=== PATIENT | male | born 1965 | race Caucasian/White ===

== ENCOUNTER 2020-07-02 16:15 | Observation (INO) | payer MEDICARE, OTHER ==
[~2020-07-02] VITALS: Ht 182.9 cm; Wt 74.8 kg
[~2020-07-02 16:15] MED LIST: LEVAQUIN500 MG PO; NORCO 5-325 TA1 EACH PO; PROTONIX 40 MG40 M1 PO; ZANTAC150 MG PO
[2020-07-02 17:11] LABS: HEMOGLOBIN 14.7 gm/dl (14.0-17.5); RED BLOOD COUNT 3.97 M/UL (4.20-5.50); WHITE BLOOD COUNT 9.4 K/UL (4.5-11.0)
[2020-07-02 17:36] LABS: BUN/CREATININE RATIO 7 (0-10)
[2020-07-03] MEDS ORDERED: LISINOPRIL10 MG PO (00:50)
[2020-07-03 03:27] LABS: HEMOGLOBIN 12.8 gm/dl (14.0-17.5); WHITE BLOOD COUNT 8.2 K/UL (4.5-11.0)
[2020-07-03 03:41] LABS: RED BLOOD COUNT 3.55 M/UL (4.20-5.50)
[2020-07-03 03:49] LABS: BUN/CREATININE RATIO 9 (0-10)
[2020-07-04 05:59] LABS: HEMOGLOBIN 12.8 gm/dl (14.0-17.5); RED BLOOD COUNT 3.53 M/UL (4.20-5.50)
[2020-07-04 06:00] LABS: WHITE BLOOD COUNT 6.1 K/UL (4.5-11.0)
[2020-07-04 06:32] LABS: BUN/CREATININE RATIO 15 (0-10)
[2020-07-04] MEDS ORDERED: AUGMENTIN 875-1 EACH PO (09:53)
== END 2020-07-04 10:45 | disposition home or self-care (01) ==
LOC: ER1 16:15 → CDU 22:21 → M/S 22:21
PROVIDERS: Internal Medicine Infectious Disease; Physician Assistant; ADMIT Family Medicine
DX: L03.114 Cellulitis of left upper limb (principal); L03.113 Cellulitis of right upper limb; E87.6 Hypokalemia; E83.42 Hypomagnesemia; E87.2 Acidosis; I10 Essential (primary) hypertension; K21.9 Gastro-esophageal reflux disease without esophagitis; F17.210 Nicotine dependence, cigarettes, uncomplicated; R74.01 Elevation of levels of liver transaminase levels; Z20.822 Contact with and (suspected) exposure to COVID-19; Z79.899 Other long term (current) drug therapy; W55.03XA Scratched by cat, initial encounter
CPT/HCPCS: 36415; 73130; 80053; 83605; 83735; 84100; 85025; 85027; 85652; 86140; 87040; 96365; 96375; 96376; 99284; G0378; J0295; J0456; J1885; J2270; J2405; J7030; U0002

== ENCOUNTER 2020-08-09 15:14 | Emergency (ER) | payer MEDICARE ==
[~2020-08-09 15:14] MED LIST changes: +AUGMENTIN 875-1 EACH PO; +LISINOPRIL10 MG PO
[2020-08-09 16:03] LABS: HEMOGLOBIN 14.2 gm/dl (14.0-17.5); RED BLOOD COUNT 3.84 M/UL (4.20-5.50); WHITE BLOOD COUNT 8.9 K/UL (4.5-11.0)
[2020-08-09 16:27] LABS: BUN/CREATININE RATIO 8 (0-10)
[2020-08-09] MEDS ORDERED: PREDNISONE20 MG PO (17:57)
[2020-08-09] MEDS ORDERED: BACTROBAN OINT22 GM EXT (17:57)
== END 2020-08-09 18:05 | disposition home or self-care (01) ==
LOC: ER1 15:14
PROVIDERS: Family Medicine
DX: L03.115 Cellulitis of right lower limb (principal); L03.116 Cellulitis of left lower limb; I10 Essential (primary) hypertension
CPT/HCPCS: 80053; 85025; 85610; 85652; 85730; 86140; 99283

== ENCOUNTER 2020-12-19 21:49 | Inpatient (IN) | payer MEDICARE ==
[~2020-12-19] VITALS: Ht 182.9 cm; Wt 69.5 kg
[~2020-12-19 21:49] MED LIST changes: +ASPIRIN EC81 MG PO; +BACTROBAN OINT22 GM EXT; +PREDNISONE20 MG PO; +VITAMIN D325 MCG PO
[2020-12-19 22:23] LABS: HEMOGLOBIN 15.5 gm/dl (14.0-17.5); RED BLOOD COUNT 4.19 M/UL (4.20-5.50); WHITE BLOOD COUNT 11.5 K/UL (4.5-11.0)
[2020-12-19 23:12] LABS: BUN/CREATININE RATIO 6 (0-10)
[2020-12-20 03:00] LABS: HEMOGLOBIN 14.7 gm/dl (14.0-17.5); RED BLOOD COUNT 3.99 M/UL (4.20-5.50); WHITE BLOOD COUNT 10.7 K/UL (4.5-11.0)
[2020-12-21 05:40] LABS: HEMOGLOBIN 12.8 gm/dl (14.0-17.5); RED BLOOD COUNT 3.52 M/UL (4.20-5.50); WHITE BLOOD COUNT 8.7 K/UL (4.5-11.0)
[2020-12-21 06:07] LABS: BUN/CREATININE RATIO 14 (0-10)
--- NOTE | 2020-12-21 08:57 | NUR ---
PATIENT HAVING HEART CATH DONE TODAY, CALLED [facility] INSPECTOR NOT FAMILIAR WITH THE PATIENT NO ORDERS AT THIS TIME. MEDICATIONS ON HOLD AND TO BE ADMINISTERED POST PROCEDURE.
[2020-12-21] MEDS ORDERED: VITAMIN B-1100 M1 PO (12:06)
[2020-12-21] MEDS ORDERED: FOLIC ACID 1 MG1 MG PO (12:06)
--- NOTE | 2020-12-21 15:40 | NUR ---
RN REMOVED TR BAND AFTER ALL AIR WAS EXTRACTED. NO S/SX OF BLEEDING OR HEMATOMA. PULSES PRESENT. DENIES PAIN. WIGGLES FINGERS. INSTRUCTED TO LIMIT MOVEMENT OF RIGHT WRIST TO PREVENT COMPLICATIONS. REFUSES WRIST BOARD. PATIENT STATED THEY WOULD APPLY EVENT MONITOR ONCE DISCHARGED. MD AWARE.
== END 2020-12-21 16:53 | disposition home or self-care (01) | DRG 287 ==
LOC: ER1 21:49 → CDU 12-20 01:13 → MED SURG 4 12-20 01:13
PROVIDERS: Physician Assistant; ADMIT Internal Medicine
PROC: B24BZZZ Ultrasonography of Heart with Aorta (ICD-10-PCS; principal; 2020-12-20)
PROC: 4A023N7 Measurement of Cardiac Sampling and Pressure, Left Heart, Percutaneous Approach (ICD-10-PCS; 2020-12-21)
PROC: B2111ZZ Fluoroscopy of Multiple Coronary Arteries using Low Osmolar Contrast (ICD-10-PCS; 2020-12-21)
DX: I25.110 Atherosclerotic heart disease of native coronary artery with unstable angina pectoris (principal); E87.1 Hypo-osmolality and hyponatremia; E07.89 Other specified disorders of thyroid; Z20.822 Contact with and (suspected) exposure to COVID-19; I10 Essential (primary) hypertension; I08.1 Rheumatic disorders of both mitral and tricuspid valves; R79.89 Other specified abnormal findings of blood chemistry; R55 Syncope and collapse; K21.9 Gastro-esophageal reflux disease without esophagitis; F10.10 Alcohol abuse, uncomplicated; F17.210 Nicotine dependence, cigarettes, uncomplicated; Z79.01 Long term (current) use of anticoagulants; Z79.82 Long term (current) use of aspirin; Z85.038 Personal history of other malignant neoplasm of large intestine; Z90.49 Acquired absence of other specified parts of digestive tract; Z82.49 Family history of ischemic heart disease and other diseases of the circulatory system; Z83.3 Family history of diabetes mellitus
CPT/HCPCS: 36415; 71045; 80048; 80053; 82550; 82553; 83874; 83880; 84484; 85025; 85379; 85610; 85730; 93005; 93308; 96374; 96375; 99152; 99285; C1769; C1887; C1894; J1644; J2250; J2270; J2405; J3010; J7030; Q9967; U0002

== ENCOUNTER → 2021-03-24 | Day surgery (SDC) | payer MEDICARE ==
[~2021-03-24] MED LIST changes: +FOLIC ACID 1 MG1 MG PO; +METOPROLOL TART25 MG PO; +VITAMIN B-1100 M1 PO
== END | disposition home or self-care (01) ==
LOC: OR 06:03
DX: Z12.11 Encounter for screening for malignant neoplasm of colon (principal); K22.70 Barrett's esophagus without dysplasia; K62.1 Rectal polyp; K76.6 Portal hypertension; K31.89 Other diseases of stomach and duodenum; K21.9 Gastro-esophageal reflux disease without esophagitis; K64.0 First degree hemorrhoids; K64.4 Residual hemorrhoidal skin tags; F10.10 Alcohol abuse, uncomplicated; I10 Essential (primary) hypertension; Z86.010 Personal history of colon polyps; Z80.0 Family history of malignant neoplasm of digestive organs; F17.210 Nicotine dependence, cigarettes, uncomplicated; Z79.899 Other long term (current) drug therapy; Z20.822 Contact with and (suspected) exposure to COVID-19
CPT/HCPCS: J2704; J3010; J7040

== ENCOUNTER → 2021-03-30 | Outpatient (CLI) | payer MEDICARE | LOC: US 03-11 09:30 | DX: R11.10 Vomiting, unspecified (principal); K80.20 Calculus of gallbladder without cholecystitis without obstruction; K76.0 Fatty (change of) liver, not elsewhere classified | CPT/HCPCS: 36415; 76705; 80076; 82150; 83690 ==

== ENCOUNTER → 2021-04-08 | Outpatient (CLI) | payer MEDICARE | LOC: MRI 08:14 | DX: K83.8 Other specified diseases of biliary tract (principal); K76.0 Fatty (change of) liver, not elsewhere classified | CPT/HCPCS: 74181 ==

== ENCOUNTER 2021-10-12 10:24 | Emergency (ER) | payer MEDICARE ==
[2021-10-12] MEDS ORDERED: ONDANSETRON ODT4 MG SL ×2 (16:37→16:45)
[2021-10-12] MEDS ORDERED: MECLIZINE HCL25 MG PO ×2 (16:37→16:45)
[2021-10-12] MEDS ORDERED: AMOX TR-K CLV1 EAC4 PO ×2 (16:37→16:45)
== END 2021-10-12 17:00 | disposition home or self-care (01) ==
LOC: ER1 10:24
DX: S93.401A Sprain of unspecified ligament of right ankle, initial encounter (principal); H66.91 Otitis media, unspecified, right ear; H72.91 Unspecified perforation of tympanic membrane, right ear; K21.9 Gastro-esophageal reflux disease without esophagitis; I10 Essential (primary) hypertension; I48.91 Unspecified atrial fibrillation; F17.200 Nicotine dependence, unspecified, uncomplicated; X50.9XXA Other and unspecified overexertion or strenuous movements or postures, initial encounter
CPT/HCPCS: 73610; 99283

== ENCOUNTER 2021-10-19 19:31 | Inpatient (IN) | payer MEDICARE ==
[~2021-10-19] VITALS: Ht 182.9 cm; Wt 74.8 kg
[~2021-10-19 19:31] MED LIST changes: +AMOX TR-K CLV1 EAC4 PO; +CIPRODEX OTIC7.5 ML EARRT; +MECLIZINE HCL25 MG PO; +ONDANSETRON ODT4 MG SL
[2021-10-19 20:39] LABS: HEMOGLOBIN 14.4 gm/dl (14.0-17.5); RED BLOOD COUNT 4.21 M/UL (4.20-5.50); WHITE BLOOD COUNT 6.6 K/UL (4.5-11.0)
[2021-10-19 21:09] LABS: BUN/CREATININE RATIO 9 (0-10)
[2021-10-20] MEDS ORDERED: TRAZODONE HCL50 MG PO (13:16)
[2021-10-20] MEDS ORDERED: MECLIZINE HCL25 MG PO (13:17)
[2021-10-20] MEDS ORDERED: VIAGRA25 MG PO (13:24)
[2021-10-21 02:53] LABS: WHITE BLOOD COUNT 5.7 K/UL (4.5-11.0)
[2021-10-21 02:56] LABS: HEMOGLOBIN 11.9 gm/dl (14.0-17.5); RED BLOOD COUNT 3.58 M/UL (4.20-5.50)
[2021-10-21 03:16] LABS: BUN/CREATININE RATIO 15 (0-10)
[2021-10-21 10:51] LABS: BUN/CREATININE RATIO 12 (0-10)
[2021-10-21] MEDS ORDERED: ASPIRIN EC81 MG PO (16:31)
[2021-10-21] MEDS ORDERED: KEPPRA 500 MG500 MG PO (16:31)
[2021-10-21] MEDS ORDERED: ATORVASTATIN CA20 MG PO (16:31)
[2021-10-21] MEDS ORDERED: LOPRESSOR 25 MG25 MG PO (16:31)
[2021-10-21] MEDS ORDERED: LIBRIUM CAP 2525 MG PO (17:48)
[2021-10-21] MEDS ORDERED: ONDANSETRON HCL4 MG PO (17:56)
[2021-10-21] MEDS ORDERED: MAG-OX 400 TAB400 MG PO (17:56)
== END 2021-10-21 19:28 | disposition home or self-care (01) | DRG 897 ==
LOC: ER1 19:31 → M/S 10-20 04:25 → CDU 10-20 04:25 → M/S 10-20 05:01
PROVIDERS: Family Medicine; Internal Medicine; ADMIT Family Medicine
PROC: B24BZZZ Ultrasonography of Heart with Aorta (ICD-10-PCS; 2021-10-20)
PROC: 4A10X4Z Monitoring of Central Nervous Electrical Activity, External Approach (ICD-10-PCS; principal; 2021-10-21)
DX: F10.231 Alcohol dependence with withdrawal delirium (principal); E87.1 Hypo-osmolality and hyponatremia; E87.2 Acidosis; I47.1 Supraventricular tachycardia; R56.9 Unspecified convulsions; I10 Essential (primary) hypertension; M54.50 Low back pain, unspecified; E55.9 Vitamin D deficiency, unspecified; G89.29 Other chronic pain; E83.42 Hypomagnesemia; K21.9 Gastro-esophageal reflux disease without esophagitis; F17.200 Nicotine dependence, unspecified, uncomplicated; K76.0 Fatty (change of) liver, not elsewhere classified; Z87.11 Personal history of peptic ulcer disease; Z82.49 Family history of ischemic heart disease and other diseases of the circulatory system; Z79.82 Long term (current) use of aspirin; Z79.899 Other long term (current) drug therapy
CPT/HCPCS: ECHO; 36415; 70450; 70551; 71045; 80053; 80061; 80307; 81001; 82550; 82553; 83605; 83690; 83735; 84100; 84439; 84443; 84484; 85025; 85610; 87086; 93005; 93270; 93306; 95816; 96361; 96374; 96375; 99285; C9113; G0480; J1650; J1953; J2405; J3411; J3475; J7030; Q9967; U0002